=== PATIENT | female | born 1970 | race American Indian/Alaskan Native ===

== ENCOUNTER 2017-01-30 12:27 | Outpatient (CLI) | payer BC ==
--- NOTE | 2017-01-30 16:20 | Mammography Report ---
BILATERAL DIGITAL SCREENING MAMMOGRAM with CAD: 01/30/17 12:27:00 CLINICAL: Routine screening. COMPARISON:01/18/16 FINDINGS: The breasts are heterogeneously dense, which may obscure small masses. No mass, architectural distortion or suspicious calcifications. IMPRESSION: No mammographic evidence of malignancy. BI-RADS CATEGORY: 1 - - Negative RECOMMENDATION: Routine mammographic screening in one year. COMMENT: Patient follow-up letters are generated by our [employer] application.
== END 2017-01-30 12:28 | disposition home or self-care (01) ==
LOC: SPVWC 12:27
PROVIDERS: ATTEND Obstetrics & Gynecology
DX: Z12.31 Encounter for screening mammogram for malignant neoplasm of breast (principal)
CPT/HCPCS: 77067; G0202

== ENCOUNTER 2019-02-08 09:43 | Outpatient (CLI) | payer BC ==
--- NOTE | 2019-02-11 11:41 | Mammography Report ---
DIGITAL SCREENING MAMMOGRAM WITH CAD, 02/08/2019 INDICATION: Routine screening mammography. TECHNIQUE: Digital bilateral 2D mammography was obtained in the craniocaudal and mediolateral obliq ue projections. This examination was interpreted with the benefit of Computer-Aided Detection analysi s. COMPARISON: 02/02/2018 and mammograms going back to 01/07/2013 FINDINGS: Breast Density: The breasts are heterogeneously dense, which may obscure small masses. An oval circumscribed right mass at 6:00 at the inframammary fold requires additional imaging. No arc hitectural distortion or suspicious calcifications of the right breast. There is no evidence of domin ant mass, suspicious calcifications or architectural distortion in the left breast. IMPRESSION: Right mass at 6:00 requiring additional imaging. Recommend recall for a targeted right br east ultrasound. Follow up recommendation: Ultrasound Category 0: Incomplete. Needs additional imaging evaluation and/or prior mammograms for comparison. A "normal" or negative report should not discourage follow up or biopsy of a clinically significant f inding. A written summary of these findings will be mailed to the patient. The patient will be entered into a mammography reporting system which will generate a reminder letter for the patient's next appointmen t at the appropriate interval. The [employer] recommends yearly mammograms starting at age 40 and continuing as l kennedi as a woman is in good health. Breast MRI is recommended for women with an approximate 20-25% or greater lifetime risk of breast cancer, including women with a strong family history of breast or ova lana cancer or who have been treated for Hodgkin's disease. Signer Name: Rigoberto Gandhi MD Signed: 02/11/2019 11:37 AM Workstation Name: [id number]
== END 2019-02-08 09:44 | disposition home or self-care (01) ==
LOC: SPVWC 09:43
PROVIDERS: ATTEND Obstetrics & Gynecology
DX: Z12.31 Encounter for screening mammogram for malignant neoplasm of breast (principal)
CPT/HCPCS: 77067

== ENCOUNTER 2020-02-14 11:32 | Outpatient (CLI) | payer BC | END 2020-02-14 11:33 | disposition home or self-care (01) | LOC: SPVWC 11:32 | PROVIDERS: ATTEND Obstetrics & Gynecology | DX: Z12.31 Encounter for screening mammogram for malignant neoplasm of breast (principal) | CPT/HCPCS: 77067 ==

== ENCOUNTER 2020-03-03 11:20 | Outpatient (CLI) | payer BC ==
--- NOTE | 2020-03-03 12:07 | Ultrasound Report ---
ULTRASOUND BREAST RIGHT LIMITED, 03/03/2020 CLINICAL INFORMATION / INDICATION: Right breast nodule on screening mammography. TECHNIQUE: Targeted ultrasound evaluation was performed of the area of interest. COMPARISON: Bilateral mammography 01/08/2014 through 02/14/2020. FINDINGS: There is a 1.1 cm ovoid circumscribed hypoechoic solid nodule at the 6:30 position 6 cm from the nipp le which corresponds to the site of the mammographically detected nodule. The nodule is macrolobulate d without posterior features or internal vascularity on Doppler exam. IMPRESSION: 1.1 cm solid nodule in the right inferior breast corresponds to the mammographic finding. Since the nodule is increasing in size over serial exams, biopsy is recommended. Follow up recommendation: Surgical consult BI-RADS Category 4: Suspicious for Malignancy. A normal or "negative" report should not preclude biopsy or follow-up of a clinically suspicious find ing. Signer Name: Srinath Georges MD Signed: 03/03/2020 12:02 PM Workstation Name: [id number]
== END 2020-03-03 11:21 | disposition home or self-care (01) ==
LOC: SPVWC 11:20
PROVIDERS: ATTEND Obstetrics & Gynecology
DX: N63.13 Unspecified lump in the right breast, lower outer quadrant (principal)

== ENCOUNTER 2020-03-25 12:23 | Outpatient (CLI) | payer BC ==
--- NOTE | 2020-03-25 14:03 | Mammography Report ---
DIGITAL DIAGNOSTIC MAMMOGRAM WITH CAD CONVENTIONAL, 03/25/2020 CLINICAL INFORMATION / INDICATION: Post ultrasound-guided biopsy TECHNIQUE: Digital right mammographic imaging was performed. This examination was interpreted with the benefit of Computer-aided Detection analysis. COMPARISON: Bilateral mammogram 02/14/2020 FINDINGS: Breast Density: The breasts are heterogeneously dense, which may obscure small masses. Biopsy clip is located at the nodule in the inferior aspect of the right breast. IMPRESSION: Satisfactory clip placement Follow up recommendation: Per biopsy results Post biopsy imaging. A "normal" or negative report should not discourage follow up or biopsy of a clinically significant f inding. A written summary of these findings will be mailed to the patient. The patient will be entered into a mammography reporting system which will generate a reminder letter for the patient's next appointmen t at the appropriate interval. According to the [employer], yearly mammograms are recommended starting at age 40 and continuing as long as a woman is in good health. Breast MRI is recommended for women with an katelyn roximately 20-25% or greater lifetime risk of breast cancer, including women with a strong family his tory of breast or ovarian cancer and women who have been treated for Hodgkin's disease. Signer Name: Mike Martinez MD Signed: 03/25/2020 1:59 PM Workstation Name: [id number]
--- NOTE | 2020-03-25 14:20 | Ultrasound Report ---
ULTRASOUND-GUIDED RIGHT BREAST BIOPSY INDICATION: Irregular right breast nodule at 6:30 COMPARISON: Right breast ultrasound 03/03/2020 CONSENT: Procedure was discussed at length in advance with the patient. Possible risks and benefits w ere discussed including the possibility of bleeding. Postbiopsy care was discussed. Opportunity for q uestions was provided. Patient is not on anticoagulant therapy and reports no pertinent allergies. PROCEDURE: Timeout was performed. The irregular nodule at 6:30 was targeted sonographically. Using as eptic technique and under local anesthesia, with real-time sonographic guidance, the area of interest was biopsied. Multiple specimens were obtained with a 14-gauge Bard biopsy device and sent to [facility] for analysis. A metallic clip was placed at the end of the procedure. Site was secured and the pa tient was sent for post biopsy mammogram. Patient tolerated the procedure well and left the [facility] in good condition. IMPRESSION: Successful ultrasound-guided right breast biopsy Signer Name: Mike Martinez MD Signed: 03/25/2020 2:16 PM Workstation Name: [id number]
== END 2020-03-25 12:24 | disposition home or self-care (01) ==
LOC: SPVWC 12:23
PROVIDERS: ATTEND Obstetrics & Gynecology
DX: N63.13 Unspecified lump in the right breast, lower outer quadrant (principal); R92.8 Other abnormal and inconclusive findings on diagnostic imaging of breast; N64.89 Other specified disorders of breast
CPT/HCPCS: 88305